=== PATIENT | female | born 2005 | race Asian ===

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

== ENCOUNTER 2023-03-16 12:52 | Outpatient (CLI) | payer OTHER, SELFPAY | END 2023-03-16 12:53 | disposition home or self-care (01) | LOC: AMB 04-14 13:37 | PROVIDERS: Visit Provider Family Medicine | DX: R45.851 Suicidal ideations (principal) | CPT/HCPCS: A0425; A0429 ==

== ENCOUNTER 2023-03-17 17:55 | Outpatient (CLI) | payer OTHER, SELFPAY | END 2023-03-17 17:56 | disposition home or self-care (01) | LOC: AMB 04-14 13:47 | PROVIDERS: Visit Provider Student in an Organized Health Care Education/Training Program | DX: R45.851 Suicidal ideations (principal) | CPT/HCPCS: A0425; A0429 ==

== ENCOUNTER 2024-12-14 17:29 | Outpatient (CLI) | payer OTHER, SELFPAY | END 2024-12-14 17:30 | disposition home or self-care (01) | LOC: NFLDUCREF 17:29 | DX: R10.9 Unspecified abdominal pain (principal) | CPT/HCPCS: 87086 ==

== ENCOUNTER 2025-03-01 09:25 | Outpatient (CLI) | payer OTHER, SELFPAY | END 2025-03-01 09:26 | disposition home or self-care (01) | PROVIDERS: PCP Family Medicine; Visit Provider Family Medicine | DX: R10.9 Unspecified abdominal pain (principal); R53.83 Other fatigue; Z13.6 Encounter for screening for cardiovascular disorders | CPT/HCPCS: 80053; 80061; 84443 ==

== ENCOUNTER 2025-03-20 02:07 | Outpatient (CLI) | payer OTHER, SELFPAY | END 2025-03-20 02:08 | disposition home or self-care (01) | LOC: AMB 03-22 08:33 | PROVIDERS: PCP Family Medicine; Visit Provider Family Medicine | DX: T45.0X2A Poisoning by antiallergic and antiemetic drugs, intentional self-harm, initial encounter (principal); F10.10 Alcohol abuse, uncomplicated | CPT/HCPCS: A0425; A0427 ==

== ENCOUNTER 2025-03-20 02:37 | Emergency (ER) | payer OTHER, SELFPAY ==
--- OUTSIDE RECORDS SUMMARY | 2025-03-20 02:40 | XMS_ITS | Clinical Summary ---
Author Organization [facility] Address [address] [place] [id number] Care Team Providers Care Manufacturing Advisor Name Role Phone None Primary Care Provider Unavailabl e Allergies Active Allergy Reactions Criticality Noted Date Comments Penicillins Hives 08/21/2022 Medications No known medications Active Problems Problem Noted Date Diagnosed Date Personality disorder, unspecified 11/25/2024 CHARLEEN (generalized anxiety disorder) 11/09/2024 MDD (major depressive disord er), recurrent severe, without psychosis 11/09/2024 Obsessive-compulsive disorder 11/09/2024 Suicidal ideation 03/18/2023 Severe episode of recurrent major depressive disorder, without psychotic features 08/21/2022 Generalized anxiety disorder 08/21/2022 Encounters Date Type Department Care Team Description 01/10/2025 10:00 AM CDT Telemedicine [facility] [address] [place] [address] Caden Rushing, PhD, LP Telehealth (Psychological Testing) 01/05/2025 Travel 12/21/2024 11:00 AM CDT Telemedicine [facility] [address] [place] [address] Caden Rushing, PhD, LP Telehealth 2024 Travel from Last 3 Months Immunizations Immunization Administration Dates Next Due Influenza, IIV4 06/16/2022 Family History Medical History Relation Name Comments No Known Problems Brother Paternal darin rother, I think he was killed. Heart Disease Father Lung cancer Father Stroke Father Hypertension Maternal Grandfather Hypertension Maternal Grandmother No Known Problems Mother Fabby No Known Problems Sister reports isaac ving 3-6 paternal sisters, no information is known about them Relation Name Status Comments Brother Father Maternal Grandfather Alive Maternal Grandmother Alive Mother Fabby Alive Paternal Grandfather Paternal Grandmother Sister Alive Social History Tobacco Use Types Packs/Day Years Used Date Smoking Tobacco: Never Smokeless Tobacco: Never Tobacco Cessation:Counseling Given: Yes Alcohol Use Standard Drinks/Week Comments Yes 0 (1 standard drink = 0.6 oz pur e alcohol) occasionally PHQ-2 Answer Date Recorded PHQ-2 TOTAL SCORE 1 2024 Social Connections Answer Date Recorded Do you often feel lonely or isolated from those around you? 0 10/10/2024 Alcohol Use Answer Date Recorded How often do you have a drink containing alcohol ? 0 03/18/2023 How many drinks containing a lcohol do you have on a typical day when you are drinking? 0 03/18/2023 How often do you have five or more drinks on one occasion? 0 03/18/2023 Financial Resource Strain Answer Date R ecorded Difficulty of Paying Living Expenses 3 10/10/2024 Difficulty of Paying Living Expenses Not on file 10/10/2024 Food Insecurity Answer Date Recorded Do you worry your food will run out before you are able to buy more? 1 10/10/2024 Transportation Needs Answer Date Record ed Does lack of transportation keep you from medica l appointments? 2 10/10/2024 Does lack of transportation keep you from work, meetings or getting things that you need? 1 10/10/2024 Housing Stability Answer Date Recorded What is your housing situation today? 1 10/10/2024 Utilities Answer Date Recorded Do you have trouble paying f or utilities (for example, heat, electricity, water, phone)? 1 10/10/2024 Education Answer Date Recorded What is the highest level of school you have completed or the highest degree you have received? Some college, no degree 03/18/2023 Comments Unknown Sex and Gender Information Value Date Recorded Sex Assigned at Not on file Legal Sex Female 1:51 PM CDT Gender Identity Not on file Sexual Orientation Not on file Occupation Industry Job Start Date Job End Date Not on file Not on file Not on file Not on file Obstetrics History Last Filed Vital Signs Vital Sign Reading Time Taken Comments Blood Pressure 118/80 10/24/2024 3:03 PM CDT Pulse 70 10/24/2024 3:03 PM CDT Temperature 36.9 C (98.4 F) 03/24/2023 8:00 AM CDT Respiratory Rate 12 03/24/2023 8:00 AM CDT Oxygen Saturation 98% 10/24/2024 3:03 PM CDT Inhaled Oxygen Concentration - - Weight 68.5 kg (151 lb) 10/24/2024 3:03 PM CDT Height 165.1 cm (5' 5) 03/21/2023 8:00 AM CDT Body Mass Index - - Plan of Treatment Health Maintenance Due Date Last Done Comments Tetanus booster 12/19/2014 HIV for age 15-65 12/19/2018 HPV series for age 9-45 (1 - 3-dose series) 12/19/2018 Chlamydia for age 16-24 2019 BMI (ht and wt on same day) for age 18+ 12/19/2021 Hepatitis C screening for age 18-79 12/19/2021 Hepatitis B series for 19+ (1 of 3 - 19+ 3-dose series) 12/19/2022 Pap test for age 21-65 12/19/2024 COVID-19 vaccine series ( - 2023- season) 2025 Influenza Vaccine (#1) 2025 06/16/2022 Depression screening for age 12+ 2025 2024, 10/24/2024, 10/24/2024, Additional history exists RSV vaccine for adults or (1 - 1-dose 75+ series) 12/19/2078 Meningococcal series for age 11-21 Aged Out No longer eligible based on patient's age to complete this topic Pneumococcal series for age 6-49 Aged Out No longer eligible based on patient's age to complete this topic Insurance [facility] ATTN: [place] [address] [employer] PPO Advance Directives * Full Code (Latest Code Status on File) Date Activated Date Inactivated Comments 03/18/2023 8:43 AM 03/24/2023 11:52 AM Question Answer Comments Code Status Discussion: Reviewed Preferences Care Teams Manufacturing Advisor Relationship Specialty Start Date End Date None . PCP - General 03/16/23
[2025-03-20 02:53] VITALS: BP 125/85; PULSE 95; RESP 16; TEMP 36.8; O2SAT 98; BMI 24.1
--- NOTE | 2025-03-20 03:02 | ED_ITS ---
HPI - Overdose General Chief Complaint: Overdose Stated Complaint: overdose Time Seen by Provider: 03/20/25 02:41 Source: patient and EMS Mode of arrival: EMS Limitations: no limitations History of Present Illness HPI Narrative: 19-year-old female identifying as male presents to the emergency department for evaluation of overdose. Overdose was 8 hours prior to arrival. Approximately 25 tablets of Benadryl and 10 tablets of ibuprofen mixed with a bottle of wine and some other random alcohol. Patient denies that she was planning a suicide attempt, reports that this was an impulsive thing and denies that this has ever happened before. It course know that this has happened before. Patient has tried checking energy drinks and has threatened suicide multiple times. We actually did receive a call from the [facility] psychologist while I was interviewing the patient and they report to us that she was followed by that particular psychologist 2 years ago, multiple visits threatened suicide frequently. Had a history of cutting, has had a couple of low yield attempts such as tugging energy drinks, similar episode as this. She was actually hospitalized after mental health evaluation in our ED 2 years ago in out early, I have reviewed that ED note but I do not have a discharge summary from the hospitalization. The psychologist states that the patient transferred to an outside therapist, patient denies seeing a therapist currently and denies use of any psychotropic medications. Tonight, patient states that she had the impulse to take the medications out of curiosity, wondered what might happen. She then reached out to her boyfriend stating that she ?felt like she was dying and took ?all of her pills?. She does not have access to any prescription medications currently. She denies any recreational drug use. Denies taking aspirin or Tylenol. She adamantly denies that it was with intent to kill herself but she has previously threatened to take Benadryl overdose to kill herself in the past according to the note from 2022. She reports that school is going fine thus far. There have been no major up people's in her personal, social or family life. When I ask about her family being in her life, she says that they really are not. But they do completely support her financially so clearly they are. It sounds as though she finds her parents to be cold and distant. Denies that she visits them on holidays or school breaks. She reports that she has friends in her life, is on track to graduate at the end of this school year. 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 She also mentions she has explore the thought of traveling to [facility] to visit extended family. He denies access to weapons, fire arms or other harmful items. She denies any current suicidal thoughts. It sounds as though she often threatens suicide and then quickly dismisses these thoughts. He certainly does seem to have a track record with knowing what to say to accomplish her goals for discharge. She does not use any recreational drugs, reports only social alcohol. No high-risk sexual behavior. Denies any chance of , currently on her menstrual cycle. Does not verbalize suicidal ideation to any friends recently. She did let us see the text that she sent to her boyfriend. She did not report any suicidal thoughts to EMS. They got basically the exact same story as triage and myself. When asked specifically if they would be willing to see a therapist or counselor from the school to help the brief after this episode and see what additional supports should be in place, they declined this. Citing that they would like to process things on their own and do not see any value and professional treatment. Denies any acute medical concerns. Has had episodes of retching after the ingestion, no hematemesis. Does not take any anticoagulants, has no history of seizure disorder. Poison Control was contacted. They report that the patient should be able to be medically cleared after 6 hours post ingestion, EKG basic metabolic panel, Tylenol and aspirin levels recommended. Patient denies any mental health concerns today. Reports benign past medical history, no major long-term health problems, allergy to penicillins, previous prescriptions for asthma medications reviewed. Nonsmoker. ROS notable for the overdose as above with some nausea, otherwise denies times 12 systems. Related Data Previous Rx's ?Medication ?Instructions ?Recorded albuterol sulfate 90 mcg/actuation 2 puff inhalation Q 4-6H PRN 01/22/25 aerosol inhaler shortness of breath or wheez ing #6.7 grams fluticasone furoate 100 1 inh inhalation QDAY #30 ea 03/01/25 mcg/actuation blister powder for inhalation (Arnuity Ellipta) Allergies Allergy/AdvReac Type Severity Reaction Status Date / Time Penicillins AdvReac Intermediate Hives Verified 03/20/25 03:02 PFSH PFSH Family History Father Lung cancer Stroke Heart disease Maternal Grandmother High blood pressure Maternal Grandfather High blood pressure Social History What is your current living situation?: I presently have a place to live Problems where you live: no known problems In the past 12 months, utilities in danger of being shut off: no In past 12 months, lack of transportation kept you from medical appts, meetings, work, or getting things needed for daily living: yes In the past 12 mos, have been you worried that your food would run out before you had money to buy more?: sometimes true In the past 12 mos, the food you bought just didn't last and you didn't have money to buy more?: never true Smoking Status: Never smoker Do you use any of these nicotine containing products: None Second hand tobacco smoke exposure: No How often do you have a drink containing alcohol: monthly or less How many standard drinks containing alcohol do you have on a typical day: 1 or 2 How often do you have six or more drinks on one occasion: Never AUDIT-C Alcohol total score: 1 Non-prescribed substance use: denies use How often does anyone, including family, friends and others, physically hurt you : never How often does anyone, including family, friends and others, insult or talk down to you: fairly often How often does anyone, including family, friends and others, threaten you with harm: never How often does anyone, including family, friends and others, scream or curse at you: sometimes service: No Health Related Social Needs: food insecurity (Z59.41), transportation insecurity (Z59.82) and Other personal risk factors, not elsewhere classified (Z91.89) Exam Const: Vital Signs, click to edit/add: Vital Signs - 24 hr 03/20/25 02:53 03/20/25 03:30 03/20/25 04:49 Temperature 98.3 F 98.5 F Pulse Rate [Pulse Oximeter] 95 81 76 Respiratory Rate 16 16 16 Blood Pressure [Ri ght Upper Arm] 125/85 124/79 128/88 Pulse Oximetry 98 98 98 Oxygen Delivery Me thod Room Air Room Air Room Air Documenting provider has reviewed patient's vital signs: yes Common normals: no apparent distress and alert General appearance: well kempt Other: Very guarded in her answers, thoughtful. She certainly does like to control the direction of a conversation. Polite and cooperative. Certainly seems to be searching for the answers that will reassure the healthcare team. I cannot necessarily say that she is being fully truthful. HENMT: Common normals: normocephalic, moist oral mucous membranes and oropharynx normal Head and scalp: normocephalic Eye: Common normals: conjunctivae normal General eye: normal appearance of both eyes Conjunctiva: conjunctiva(e) normal Neck & C-Spine: Common normals: full ROM, no lymphadenopathy, no meningeal signs and thyroid normal General: normal visual inspection Thyroid: thyroid normal Resp: Common normals: normal respiratory effort, no use of accessory muscles and clear to auscultation bilaterally Effort & inspection: able to speak in complete sentences Auscultation: clear to auscultation bilaterally Cardio: Common normals: regular rate, regular rhythm, S1 normal heart sound, S2 normal heart sound and no murmurs Rate: regular rate Rhythm: regular rhythm Heart sounds: S1 normal and S2 normal GI: Common normals: Normal to inspection, nondistended, normoactive bowel sounds present, soft to palpation, non-tender, no hepatosplenomegaly and no masses Palpation: soft and no hepatosplenomegaly Neuro: Common normals: moves all extremities Sensorium/orientation: alert Meningeal signs: no meningeal signs Speech: speech normal Motor exam: no movement abnormalities noted Psych: Common normals: thought process normal Appearance: well kempt Attitude: engaged Activity/motor behavior: appropriate eye contact Mood and affect: euthymic mood Thought process: normal thought process Thought content: normal thought content Insight: insight good Judgement: judgment good Skin: Common normals: no rashes or lesions noted Narrative: No obvious scars or signs of recent trauma. General skin exam: no rashes or lesions noted Course Course ED Course: 19-year-old female with Benadryl and ibuprofen overdose. Can be medically cleared if labs and EKG are normal. Bigger concern that this was a suicide attempt. Patient denies that, citing that this was impulsive. It sounds like it might have been brought on by drinking alcohol. Will check EKG, Tylenol and aspirin levels, basic metabolic panel and alcohol level. Patient certainly does not verbalize any suicidal thoughts or plan to me, triage or EMS but she is quite kg in her responses and I think but she has been through this process enough times to know what to say to direct us towards her intended outcomes. Will also get feedback from a mental health flat locker but the psychologist from the [facility] was overall reassuring that this is a typical pattern for the patient. Await outcomes of psychologists interview and labs. Reevaluation(s) Time of Reevaluation #1: 04:13 Reevaluation #1: Update: Spoke with Joseph intake mental health nurse, she had not found out that the patient does not have a roommate, she had not found out that the patient had declined to do therapy or a psychology visit outpatient to me. With this information, intake nurse does not think that the patient is safe to discharge without further talking to a higher level provider but admits that she is quite unsure. Mental health nurse will escalate to the psychiatrist for additional help in feedback. Patient informed of these results. She seemed a little disappointed. I also let her know that she is not currently on a 72 hour hold. But if she did try to leave prior to completion of her psychiatry assessment, she would be placed on a hold. Comfort items offered, patient declined at this time. Reevaluation #2: Update: Able to speak with Psychiatry after psychiatry consult and with patient. At this time, they do not believe the patient would benefit from inpat ient treatment. They were able to speak with the patient's significant other who is very convinced that this patient did not attempt suicide, has not been showing any signs of suicidal gestures or behavior when not drinking. They can contract to help keep them safe and watched them overnight. Labs all look reassuring. Patient does feel as though they are safe to discharge home. I still have encouraged them to follow-up with outpatient mental health treatment. Written instructions provided. Vital Signs Vital signs: Initial Vital Signs Temperature 98.3 F 03/20/25 02:53 Temperature Source Temporal Artery Scan 03/20/25 02:53 Pulse Rate 95 03/20/25 02:53 Respiratory Rate 16 03/20/25 02:53 Blood Pressure 125/85 03/20/25 02:53 Blood Pressure Mean 98 03/20/25 02:53 Blood Pressure Position Supine 03/20/25 02:53 Pulse Oximetry 98 03/20/25 02:53 Oxygen Delivery Method Room Air 03/20/25 02:53 Vital Signs Temperature 98.3 F 03/20/25 02:53 Pulse Rate 95 03/20/25 02:53 Respiratory Rate 16 03/20/25 02:53 Blood Pressure 125/85 03/20/25 02:53 Pulse Oximetry 98 03/20/25 02:53 Oxygen Delivery Method Room Air 03/20/25 02:53 Temperature 98.5 F 03/20/25 04:49 Pulse Rate 76 03/20/25 04:49 Respiratory Rate 16 03/20/25 04:49 Blood Pressure 128/88 03/20/25 04:49 Pulse Oximetry 98 03/20/25 04:49 Oxygen Delivery Method Room Air 03/20/25 04:49 MDM - Overdose Differential Diagnosis Differential diagnosis: Likely suicide attempt by multiple drug overdose, drug overdose and accidental drug ingestion Medical Records Attestation: I reviewed the patient's medical records. Lab Data Attestation: I reviewed the patient's lab results. Lab results narrative: Labs normal. No abnormalities. Alcohol and drug levels normal Labs: Lab Results 03/20/25 Range/Units 03:25 Sodium 136 (135-149) mmol/L Potassium 3.6 (3.6-5.1) mmol/L Chloride 105 (96-114) mmol/L Carbon Dioxide 25 (20-32) mmol/L Anion Gap 6 L (7-15) mEq/L BUN 9 (5-24) mg/dL Creatinine 0.6 (0.5-1.5) mg/dL Estimated Creat Clear 133.46 Estimated GFR 131 ml/min Glucose 99 (60-115) mg/dL Calcium 9.2 (8.4-10.6) mg/dL Salicylates < 1.0 L (1.0-10) mg/dL Acetaminophen < 10.0 (10.0-30.0) ug/mL Ethyl Alcohol < 0.01 (0.01-0.03) % ECG Data Attestation: I personally reviewed and interpreted this ECG as follows: Prior ECG tracings: not available for review Interpretation: Sinus rhythm with a rate of 77. No significant ST or T-wave abnormalities. Normal intervals and axis. Good R-wave progression. Normal EKG. Discharge Plan Discharge Clinical Impression: Drug overdose Patient Disposition: Home w/ Parent or Adult Condition: Improved Instructions: Adult Overdose (ED) Additional Instructions: As we discussed, even though this episode did seem somewhat impulsive, this certainly has some underlying mental health concerns that her worrisome for suicide. I do think that alcohol certainly escalated your symptoms and I do not recommend that you continue should drink alcohol. You have declined to have this reassessed by mental health professional I would strongly encourage you to reconsider that. Digesting your own feelings is important but deeper exploration may help reveal some or underlying seems that may benefit you in the long run to better understand. I strongly encourage you to reconsider this and schedule with the psychologist from your [place]. You are medically cleared to return to school and work. If you have worsening of your mental health feelings, please call 911, reach out to a trustworthy friend or present to the emergency department. Activity Level: No Restrictions Discharge Diet: Regular Prescriptions: No Action albuterol sulfate 90 mcg/actuation HFA aerosol inhaler 2 puff inhalation Q4-6H PRN (Reason: shortness of breath or wheezing) Qty: 6.7 0RF fluticasone furoate [Arnuity Ellipta] 100 mcg/actuation blister with device 1 inh inhalation QDAY Qty: 30 12RF Follow Up/Referrals: Anthony Olea MD [Primary Care Provider, Family Practice] Stand Alone Forms: [employer] Info Instructions
[2025-03-20 03:30] VITALS: BP 124/79; PULSE 81; RESP 16; O2SAT 98
[2025-03-20 03:54] LABS: Chloride* 105 mmol/L (96-114); Potassium* 3.6 mmol/L (3.6-5.1); Sodium* 136 mmol/L (135-149)
[2025-03-20 03:57] LABS: Anion Gap 6 mEq/L (7-15); Blood Urea Nitrogen* 9 mg/dL (5-24); Calcium* 9.2 mg/dL (8.4-10.6); Carbon Dioxide* 25 mmol/L (20-32); Creatinine* 0.6 mg/dL (0.5-1.5); Est. Creatinine Clearance* 133.46; Estimated Glomerular Filt Rate 131 ml/min; Glucose* 99 mg/dL (60-115)
[2025-03-20 03:58] LABS: Acetaminophen* < 10.0 ug/mL (10.0-30.0); Ethanol* < 0.01 % (0.01-0.03); Salicylate* < 1.0 mg/dL (1.0-10)
[2025-03-20 04:49] VITALS: BP 128/88; PULSE 76; RESP 16; TEMP 36.9; O2SAT 98
== END 2025-03-20 05:13 | disposition home or self-care (01) ==
PROVIDERS: Emergency Provider Family Medicine; PCP Family Medicine
DX: T45.0X2A Poisoning by antiallergic and antiemetic drugs, intentional self-harm, initial encounter (principal); T39.312A Poisoning by propionic acid derivatives, intentional self-harm, initial encounter; F10.99 Alcohol use, unspecified with unspecified alcohol-induced disorder; Z13.6 Encounter for screening for cardiovascular disorders
CPT/HCPCS: 36415; 80048; 80143; 80179; 82077; 93005; 99284; 99285; Q3014

== ENCOUNTER 2025-05-16 21:01 | Outpatient (CLI) | payer OTHER, SELFPAY | END 2025-05-16 21:02 | disposition home or self-care (01) | PROVIDERS: PCP Family Medicine; Visit Provider Emergency Medicine | DX: R45.851 Suicidal ideations (principal) | CPT/HCPCS: A0425; A0427 ==

== ENCOUNTER 2025-05-16 21:13 | Emergency (ER) | payer OTHER, SELFPAY ==
--- OUTSIDE RECORDS SUMMARY | 2025-05-16 21:14 | XMS_ITS | Clinical Summary ---
Author Organization [employer] [facility] Address [address] [place] [id number] Care Team Providers Care Decoration Checker Name Role Phone None Primary Care Provider [...] Encounters Date Type Department Care Team Description 05/15/2025 2:00 PM PLANT PROTECTION GUARD Office Visit [facility] [address] [place] [address] Stevie De Los Santos, [facility] Mental Health Consultants Visit 05/15/2025 Nurse Triage [facility] [address] [place] [address] Pcp, No Suicidal Ideation (Patient transferred to triage after telling [facility] she was suicidal and crying.) 05/15/2025 Travel from Last 3 Months Immunizations Immunization Administration Dates Next Due Influenza, IIV4 06/16/2022 Family History Medical History Relation Name Comments No Known Problems Brother Paternal darin raygoza, I think he was killed. Heart Disease [...] PHQ-2 Answer Date Recorded PHQ-2 TOTAL SCORE 5 05/15/2025 Social Connections Answer Date Recorded Do you [...] Mass Index - - Plan of Treatment Upcoming Encounters Date Type Department Care Team (Late st Contact Info) Description 05/19/2025 1:00 PM PLANT PROTECTION GUARD Telemedicine [facility] [address] [place] [address] Stevie De Los Santos, [facility] [address] [place] [address] Health Maintenance Due Date Last Done Comments [...] age 21-65 12/19/2024 COVID-19 vaccine series ( season) 2025 Influenza Vaccine (#1) 2025 06/16/2022 Depression screening for age 12+ 05/15/2026 05/15/2025, 10/24/2024, 10/24/2024, Additional history exists RSV vaccine for adults or (1 - 1-dose 75+ series) 12/19/2078 Meningococcal series for age 11-21 Aged Out No longer eligible based on patient's age to complete this topic Pneumococcal series for age 6-49 Aged Out No longer eligible based on patient's age to complete this topic Insurance [facility] ATTN: [place] [address] [employer] PPO Advance Directives * Full Code (Latest Code Status on File) Date Activated Date Inactivated Comments 03/18/2023 8:43 AM 03/24/2023 11:52 AM Question Answer Comments Code Status Discussion: Reviewed Preferences Care Teams Decoration Checker Relationship Specialty Start Date End Date None . PCP - General 03/16/23
--- NOTE | 2025-05-16 21:27 | ED.PSYCH ---
HPI - Psych General Time Seen by Provider: 21:27 Date Seen: 05/16/25 Chief Complaint: Psychiatric Problem/Disorder Stated Complaint: mental health Time Seen by Provider: 05/16/25 21:27 Source: patient and EMS Mode of arrival: EMS History of Present Illness HPI Narrative: Jorge Patel is a 19 yo female with a past medical history of depression, suicide ideation, suicide attempts who presents to the ED by EMS for overdose and suicide attempt. Patient reports that he lives alone, reports that he is currently stressed with homework, and called to see if he could go back home during the break. Patient talked to mother's boyfriend who said no. Patient also reports that his boyfriend broke up with her about 1 week ago and that was his only support. Patient states that he has no other support, does not want to be alone. Patient states that tonight he took [id number] ibuprofen. When asked how much, what time, and intention patient replied I do not know. Per EMS reported overdose of [place] 2100 [place] [address] mg. Patient did have nausea, vomiting in patient in EMS reported that he vomited most of the medication up. Patient denies any other medications, states he did not take any other prescribed per [id number] medications. Patient does report recent self-injurious behavior with cutting with a scissors to his left forearm. Patient states he does not know when he self harmed. Patient currently denies any suicide ideation. Patient states does not feel safe alone. Does not want to be alone. Patient with no other medical complaints. Per chart review patient was in the emergency department back in 2022 for depression and most recently in the emergency department for drug overdose on 03/20/2025 (with overdose of ibuprofen and Benadryl). At this time patient did discharge with a. Outpatient follow-up. Patient states she is post be getting a call today to set up intensive outpatient therapy. Related Data Previous Rx's ?Medication ?Instructions ?Recorded albuterol sulfate 90 mcg/actuation 2 puff inhalation Q4-6H PRN 01/22/25 aerosol inhaler shortness of breath or wheezing #6.7 grams fluticasone furoate 100 1 inh inhalation QDAY #30 ea 03/01/25 mcg/actuation blister powder for inhalation (Arnuity Ellipta) dextroamphetamine-amphetamine ER 20 mg PO QAM #30 caps 04/03/25 20 mg 24hr capsule,extend release (Adderall XR) Allergies Allergy/AdvReac Type Severity Reaction Status Date / Time Penicillins AdvReac Intermediate Hives Verified 04/03/25 13:51 Review of Systems Narrative: Past medical history, past surgical history, medications, allergies, family history, and social history were reviewed with the patient. No additional pertinent items. A medically appropriate review of systems was performed with pertinent positives and negatives noted in HPI, all other systems negative. PFSH PFSH Family History Father Lung cancer Stroke Heart disease Maternal Grandmother High blood pressure Maternal Grandfather High blood pressure Social History What is your current living situation?: I presently have a place to live Problems where you live: no known problems In the past 12 months, utilities in danger of being shut off: no In past 12 months, lack of transportation kept you from medical appts, meetings, work, or getting things needed for daily living: yes In the past 12 mos, have been you worried that your food would run out before you had money to buy more?: sometimes true In the past 12 mos, the food you bought just didn't last and you didn't have money to buy more?: never true Smoking Status: Never smoker Do you use any of these nicotine containing products: None Second hand tobacco smoke exposure: No How often do you have a drink containing alcohol: monthly or less How many standard drinks containing alcohol do you have on a typical day: 1 or 2 How often do you have six or more drinks on one occasion: Never AUDIT-C Alcohol total score: 1 Non-prescribed substance use: denies use How often does anyone, including family, friends and others, physically hurt you: never How often does anyone, including family, friends and others, insult or talk down to you: fairly often How often does anyone, including family, friends and others, threaten you with harm: never How often does anyone, including family, friends and others, scream or curse at you: sometimes service: No Health Related Social Needs: food insecurity (Z59.41), transportation insecurity (Z59.82) and Other personal risk factors, not elsewhere classified (Z91.89) Exam Narrative: Exam Narrative: General: Afebrile, no acute distress HEENT: Normocephalic, atraumatic, conjunctiva normal. MMM Neck: non-tender, supple Cardio: regular rate. regular rhythm Resp: Normal work of breathing, no respiratory distress, lungs clear bilaterally, no wheezing, rhonchi, rales Chest/Back: no visual signs of trauma, no midline tenderness, no CVA tenderness Abdomen: soft, non distension, no tenderness, no peritoneal signs Neuro: alert and fully oriented. CN II-XII grossly intact. Grossly normal strength and sensation in all extremities. MSK: no deformities. Normal range of motion Integumentary/Skin: superficial /lacerations to left upper extremity (forearm) with no active bleeding, healing superficial lacerations to right upper extremities Psych: normal affect, normal behavior Const: Vital Signs, click to edit/add: Vital Signs - 24 hr 05/16/25 21:28 05/16/25 23:47 05/17/25 01:01 Temperature 98.9 F Pulse Rate 64 Pulse Rate [Left P ulse Oximeter] 84 73 Respiratory Rate 16 19 23 Blood Pressure 104/76 Blood Pressure [Le ft Upper Arm] 121/88 113/85 Pulse Oximetry 97 97 [facility] 05/17/25 01:15 05/17/25 01:30 05/17/25 01:45 Temperature Pulse Rate 63 76 75 Pulse Rate [Left P ulse Oximeter] Respiratory Rate 20 23 16 Blood Pressure Blood Pressure [Le ft Upper Arm] Pulse Oximetry 96 96 [facility] 05/[facility]25 02:00 05/17/25 02:01 05/17/25 02:15 Temperature Pulse Rate 69 67 74 Pulse Rate [Left P ulse Oximeter] Respiratory Rate 23 15 19 Blood Pressure 112/75 Blood Pressure [Le ft Upper Arm] Pulse Oximetry 96 96 [facility] 05[facility]25 02:30 05/17/25 02:45 05/17/25 03:00 Temperature Pulse Rate 68 64 64 Pulse Rate [Left P ulse Oximeter] Respiratory Rate 21 22 20 Blood Pressure Blood Pressure [Le ft Upper Arm] Pulse Oximetry 97 97 96 [facility] 05/[facility]25 03:01 05/17/25 03:02 05/17/25 03:15 Temperature Pulse Rate 62 67 70 Pulse Rate [Left P ulse Oximeter] Respiratory Rate 19 23 20 Blood Pressure 107/72 Blood Pressure [Le ft Upper Arm] Pulse Oximetry 97 97 97 Oxygen Delivery Me thod 05/17/25 03:30 05/17/25 03:45 05/17/25 04:00 Temperature Pulse Rate 69 69 61 Pulse Rate [Left P ulse Oximeter] Respiratory Rate 22 17 19 Blood Pressure Blood Pressure [Le ft Upper Arm] Pulse Oximetry 97 97 97 Oxygen Delivery Me thod 05/17/25 04:01 05/17/25 04:15 05/17/25 04:30 Temperature Pulse Rate 65 73 70 Pulse Rate [Left P ulse Oximeter] Respiratory Rate 19 22 21 Blood Pressure 86/60 L Blood Pressure [Le ft Upper Arm] Pulse Oximetry 97 97 97 Oxygen Delivery Me thod 05/17/25 04:45 05/17/25 05:00 05/17/25 05:01 Temperature Pulse Rate 65 65 71 Pulse Rate [Left P ulse Oximeter] Respiratory Rate 20 19 19 Blood Pressure 105/73 Blood Pressure [Le ft Upper Arm] Pulse Oximetry 96 97 97 Oxygen Delivery Me thod 05/17/25 05:15 05/17/25 05:30 05/17/25 05:45 Temperature Pulse Rate 65 64 65 Pulse Rate [Left P ulse Oximeter] Respiratory Rate 20 18 24 Blood Pressure Blood Pressure [Le ft Upper Arm] Pulse Oximetry 97 97 97 Oxygen Delivery Me thod 05/17/25 06:00 05/17/25 06:01 05/17/25 06:15 Temperature Pulse Rate 65 64 65 Pulse Rate [Left P ulse Oximeter] Respiratory Rate 19 21 20 Blood Pressure 101/71 Blood Pressure [Le ft Upper Arm] Pulse Oximetry 97 97 97 Oxygen Delivery Me thod 05/17/25 06:30 Temperature Pulse Rate 67 Pulse Rate [Left P ulse Oximeter] Respiratory Rate 18 Blood Pressure Blood Pressure [Le ft Upper Arm] Pulse Oximetry 97 Oxygen Delivery Me thod Course Vital Signs Vital signs: Initial Vital Signs Temperature 98.9 F 05/16/25 21:28 Temperature Source Temporal Artery Scan 05/16/25 21:28 Pulse Rate 84 05/16/25 21:28 Pulse Rhythm Regular 05/16/25 21:28 Respiratory Rate 16 05/16/25 21:28 Blood Pressure 121/88 05/16/25 21:28 Blood Pressure Mean 99 05/16/25 21:28 Blood Pressure Position Sitting 05/16/25 21:28 Pulse Oximetry 97 05/16/25 21:28 Oxygen Delivery Method Room Air 05/16/25 21:28 Vital Signs Temperature 98.9 F 05/16/25 21:28 Pulse Rate 84 05/16/25 21:28 Respiratory Rate 16 05/16/25 21:28 Blood Pressure 121/88 05/16/25 21:28 Pulse Oximetry 97 05/16/25 21:28 Oxygen Delivery Method Room Air 05/16/25 21:28 Temperature 98.9 F 05/16/25 21:28 Pulse Rate 67 05/17/25 06:30 Respiratory Rate 18 05/17/25 06:30 Blood Pressure 101/71 05/17/25 06:01 Pulse Oximetry 97 05/17/25 06:30 Oxygen Delivery Method Room Air 05/16/25 23:47 Medications Administered Medications: Discontinued Medications Generic Name Dose Route Start Last Admin Trade Name Freq PRN Reason Stop Dose Admin Charcoal 50 gm 05/16/25 21:51 05/16/25 22:00 Activated Charcoal Suspension 50 Gm/240 Ml PO 05/16/25 21:52 50 gm ONCE ONE Administration MDM - Psych MDM Narrative Medical decision making narrative: Jorge Patel is a 19 yo female with a past medical history of depression, suicide ideation, suicide attempts who presents to the ED by EMS for overdose and suicide attempt. Upon arrival patient is nontoxic appearing, afebrile, no distress. Patient hemodynamically stable vital signs within normal limits. Patient here with overdose, unclear of intent. Patient with recent overdose back in March however currently denies any suicide ideation. ED nurse discussed with poison control upon arrival who recommends activated charcoal, comprehensive labs. I reviewed EKG which demonstrates normal sinus rhythm, normal axis, ventricular rate of 71 beats per minute, QTC 421, no acute ischemic change. Comprehensive labs unremarkable with white blood cell count 8.1, hemoglobin 12.8, no acute metabolic electrolyte abnormality, creatinine 0.6, negative salicylate level, negative acetaminophen level, urine drug screen positive for amphetamines, alcohol negative. Patient tolerated activated charcoal with no further episodes of vomiting. Repeat 4 hour CMP unremarkable with no acute metabolic or electrolyte abnormality, creatinine 0.7. Poison Control cleared patient at 0433. Patient is medically cleared. At this time patient continues to be sleeping, resting comfortably, so will hold off on DARY evaluation until the morning. I did receive collateral information from clinical psychologist and director of [facility] (student health and counseling) Ifrah Allen ([phone]) at [facility] who has meet with Jorge Patel in clinic previously. Tonight from security report - security office got a call from Hair (Poly mother's boyfriend). Poly said he was going to take pills to kill himself. Couldn't take it anymore and couldn't finish out the academic year. Security officers walked into house and asked Poly said he wanted to kill himself when asked. Started sobbing, vomit on floor along with ~ 50 pills that was regurgitated pills also almost empty bottle of ibuprofen, another bottle of ibuprofen and Tylenol. While on phone with 911 Poly hid scissors under arm. Police removed upon arrival and EMS transported. 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 Cant do school and life at the same time. Difficulty communicating at the same time. Patient has a longstanding history of SI and hospitalization but has been stable recently until today. Patient remains hemodynamically stable, resting comfortably. Patient medically cleared. Patient signed out to morning provider pending [facility] mental health assessment and final disposition. Medical Records Attestation: I reviewed the patient's medical records. Lab Data Attestation: I reviewed the patient's lab results. Labs: Lab Results 05/16/25 05/16/25 05/16/25 Range/Units 21:42 22:34 23:57 WBC 8.11 (4.50-11.00) K/uL RBC 4.97 (4.00-5.20) m/uL Hgb 12.8 (12.0-16.0) gm/dL Hct 40.8 (33.0-51.0) % MCV 82 (80-100) fL MCH 26 (26-34) pg MCHC 31 L (32-36) gm/dL RDW Coeff of Allen 13.8 (11.5-15.5) % Plt Count 65 L (140-440) K/uL Neut % (Auto) 65.7 (42.0-72.0) % Lymph % (Auto) 27.3 (20-44) % [place] % (Auto) 6.0 (0.0-11.0) % Eos % (Auto) 0.2 (0.0-7.0) % Baso % (Auto) 0.2 (0.0-3.0) % Neut # (Auto) 5.32 (1.7-7.0) K/uL Lymph # (Auto) 2.21 (0.90-2.90) K/uL [place] # (Auto) 0.50 (0.00-0.90) K/UL Eos # (Auto) 0.02 (0.00-0.50) K/uL Baso # (Auto) 0.02 (0.00-0.30) K/uL Abs Immat Gran (auto) 0.05 (0.00-0.30) K/uL Imm/Tot Granulo (auto) 0.6 % Sodium 139 (135-149) mmol/L Potassium 3.9 (3.6-5.1) mmol/L Chloride 101 (96-114) mmol/L Carbon Dioxide 22 (20-32) mmol/L Anion Gap 16 H (7-15) mEq/L BUN 9 (5-24) mg/dL Creatinine 0.6 (0.5-1.5) mg/dL Estimated Creat Clear 128.08 Estimated GFR 131 ml/min Glucose 96 (60-115) mg/dL Calcium 9.3 (8.4-10.6) mg/dL Total Bilirubin 0.5 (0.1-1.5) mg/dL AST 24 (12-35) U/L ALT 16 (4-35) U/L Alkaline Phosphatase 81 (40-150) U/L Total Protein 7.6 (6.0-8.3) g/dL Albumin 4.5 (3.3-5.0) g/dL TSH 0.808 (0.270-4.200) uIU/mL Urine HCG, Qual Negative (Negative) Salicylates < 1.0 L (1.0-10) mg/dL Urine Opiates Screen Negative (Negative) Ur Oxycodone Screen Negative (Negative) Urine Methadone Screen Negative (Negative) Acetaminophen < 10.0 (10.0-30.0) ug/mL Ur Barbiturates Screen Negative (Negative) U Tricyclic Antidepress Negative (Negative) Ur Phencyclidine Scrn Negative (Negative) Ur Amphetamines Screen POSITIVE A (Negative) U Methamphetamines Scrn Negative (Negative) U Benzodiazepines Scrn Negative (Negative) Urine Cocaine Screen Negative (Negative) U Marijuana (THC) Screen Negative (Negative) Ur Drug Screen Comment See Note Ethyl Alcohol < 0.01 (0.01-0.03) % SARS-CoV-2 (PCR) Negative SARS-CoV-2 (Negative) Influenza Type A (PCR) Negative PCR FLU A (Negative) Influenza Type B (PCR) Negative PCR FLU B (Negative) 05/17/25 Range/Units 02:36 WBC (4.50-11.00) K/uL RBC (4.00-5.20) m/uL Hgb (12.0-16.0) gm/dL Hct (33.0-51.0) % MCV (80-100) fL MCH (26-34) pg MCHC (32-36) gm/dL RDW Coeff of Allen (11.5-15.5) % Plt Count (140-440) K/uL Neut % (Auto) (42.0-72.0) % Lymph % (Auto) (20-44) % [place] % (Auto) (0.0-11.0) % Eos % (Auto) (0.0-7.0) % Baso % (Auto) (0.0-3.0) % Neut # (Auto) (1.7-7.0) K/uL Lymph # (Auto) (0.90-2.90) K/uL [place] # (Auto) (0.00-0.90) K/UL Eos # (Auto) (0.00-0.50) K/uL Baso # (Auto) (0.00-0.30) K/uL Abs Immat Gran (auto) (0.00-0.30) K/uL Imm/Tot Granulo (auto) % Sodium 144 (135-149) mmol/L Potassium 3.7 (3.6-5.1) mmol/L Chloride 105 (96-114) mmol/L Carbon Dioxide 24 (20-32) mmol/L Anion Gap 15 (7-15) mEq/L BUN 8 (5-24) mg/dL Creatinine 0.7 (0.5-1.5) mg/dL Estimated Creat Clear 109.78 Estimated GFR 126 ml/min Glucose 97 (60-115) mg/dL Calcium 9.3 (8.4-10.6) mg/dL Total Bilirubin 0.3 (0.1-1.5) mg/dL AST 27 (12-35) U/L ALT 17 (4-35) U/L Alkaline Phosphatase 59 (40-150) U/L Total Protein 7.3 (6.0-8.3) g/dL Albumin 4.6 (3.3-5.0) g/dL TSH (0.270-4.200) uIU/mL Urine HCG, Qual (Negative) Salicylates (1.0-10) mg/dL Urine Opiates Screen (Negative) Ur Oxycodone Screen (Negative) Urine Methadone Screen (Negative) Acetaminophen (10.0-30.0) ug/mL Ur Barbiturates Screen (Negative) U Tricyclic Antidepress (Negative) Ur Phencyclidine Scrn (Negative) Ur Amphetamines Screen (Negative) U Methamphetamines Scrn (Negative) U Benzodiazepines Scrn (Negative) Urine Cocaine Screen (Negative) U Marijuana (THC) Screen (Negative) Ur Drug Screen Comment Ethyl Alcohol (0.01-0.03) % SARS-CoV-2 (PCR) (Negative) Influenza Type A (PCR) (Negative) Influenza Type B (PCR) (Negative) Discharge Plan Discharge Clinical Impression: Overdose, Suicide ideation, Depression Prescriptions: No Action albuterol sulfate 90 mcg/actuation HFA aerosol inhaler 2 puff inhalation Q4-6H PRN (Reason: shortness of breath or wheezing) Qty: 6.7 0RF fluticasone furoate [Arnuity Ellipta] 100 mcg/actuation blister with device 1 inh inhalation QDAY Qty: 30 12RF dextroamphetamine-amphetamine [Adderall XR] 20 mg capsule,extended release 24hr 20 mg PO QAM Qty: 30 0RF Follow Up/Referrals: Anthony Olea MD [Primary Care Provider, Family Practice]
[2025-05-16 21:28] VITALS: BP 121/88; PULSE 84; RESP 16; TEMP 37.2; O2SAT 97; BMI 22.9
[2025-05-16 22:50] LABS: Ur HCG Qualitative* Negative (Negative)
[2025-05-16 22:59] LABS: Cannabinoid Screen Urine Negative (Negative); Methamphetamines Screen Urine Negative (Negative); Tricyclic Antidepressant Urine Negative (Negative)
[2025-05-16 23:07] LABS: Hematocrit* 40.8 % (33.0-51.0); Hemoglobin* 12.8 gm/dL (12.0-16.0); Immature Granulocytes Abs Auto 0.05 K/uL (0.00-0.30); Immature Granulocytes Pct Auto 0.6 %; Lymphocytes Absolute Auto 2.21 K/uL (0.90-2.90); Mean Corpuscular HGB Conc 31 gm/dL (32-36); Mean Corpuscular Hemoglobin 26 pg (26-34); Mean Corpuscular Volume 82 fL (80-100); RDW Coefficient of Variation % 13.8 % (11.5-15.5); Red Blood Count* 4.97 m/uL (4.00-5.20); White Blood Count* 8.11 K/uL (4.50-11.00)
[2025-05-16 23:32] LABS: Slide Review Reflex No
[2025-05-16 23:33] LABS: Albumin* 4.5 g/dL (3.3-5.0); Chloride* 101 mmol/L (96-114); Potassium* 3.9 mmol/L (3.6-5.1); Sodium* 139 mmol/L (135-149)
[2025-05-16 23:36] LABS: Alanine Aminotransferase* 16 U/L (4-35); Alkaline Phosphatase* 81 U/L (40-150); Anion Gap 16 mEq/L (7-15); Aspartate Amino Transferase* 24 U/L (12-35); Bilirubin Total* 0.5 mg/dL (0.1-1.5); Blood Urea Nitrogen* 9 mg/dL (5-24); Calcium* 9.3 mg/dL (8.4-10.6); Carbon Dioxide* 22 mmol/L (20-32); Creatinine* 0.6 mg/dL (0.5-1.5); Est. Creatinine Clearance* 128.08; Estimated Glomerular Filt Rate 131 ml/min; Glucose* 96 mg/dL (60-115); Total Protein* 7.6 g/dL (6.0-8.3)
[2025-05-16 23:43] LABS: Acetaminophen* < 10.0 ug/mL (10.0-30.0); Ethanol* < 0.01 % (0.01-0.03); Salicylate* < 1.0 mg/dL (1.0-10)
[2025-05-16 23:47] VITALS: BP 113/85; PULSE 73; RESP 19; O2SAT 97
[2025-05-17] VITALS (30 sets, daily range): BP systolic 86–112; BP diastolic 60–76; PULSE 61–89; RESP 15–24; TEMP 36.4; O2SAT 96–99
[2025-05-17 00:07] LABS: TSH With Reflex to FT4* 0.808 uIU/mL (0.270-4.200)
[2025-05-17 00:42] LABS: PCR FLU A Negative PCR FLU A (Negative); PCR FLU B Negative PCR FLU B (Negative); SARS PCR* Negative SARS-CoV-2 (Negative)
[2025-05-17 02:49] LABS: Albumin* 4.6 g/dL (3.3-5.0); Chloride* 105 mmol/L (96-114); Potassium* 3.7 mmol/L (3.6-5.1); Sodium* 144 mmol/L (135-149)
[2025-05-17 02:52] LABS: Alanine Aminotransferase* 17 U/L (4-35); Alkaline Phosphatase* 59 U/L (40-150); Anion Gap 15 mEq/L (7-15); Aspartate Amino Transferase* 27 U/L (12-35); Bilirubin Total* 0.3 mg/dL (0.1-1.5); Blood Urea Nitrogen* 8 mg/dL (5-24); Calcium* 9.3 mg/dL (8.4-10.6); Carbon Dioxide* 24 mmol/L (20-32); Creatinine* 0.7 mg/dL (0.5-1.5); Est. Creatinine Clearance* 109.78; Estimated Glomerular Filt Rate 126 ml/min; Glucose* 97 mg/dL (60-115); Total Protein* 7.3 g/dL (6.0-8.3)
== END 2025-05-17 18:57 | disposition other institution (70) ==
PROVIDERS: Emergency Provider Emergency Medicine; PCP Family Medicine
DX: T39.312A Poisoning by propionic acid derivatives, intentional self-harm, initial encounter (principal); R45.851 Suicidal ideations; F32.A Depression, unspecified; Y92.009 Unspecified place in unspecified non-institutional (private) residence as the place of occurrence of the external cause; Z63.0 Problems in relationship with spouse or partner
CPT/HCPCS: 36415; 80053; 80143; 80179; 80306; 81025; 82077; 84443; 85025; 87636; 93005; 96372; 99285; A9270

== ENCOUNTER 2025-05-17 18:48 | Outpatient (CLI) | payer OTHER, SELFPAY | END 2025-05-17 18:49 | disposition home or self-care (01) | PROVIDERS: PCP Family Medicine; Visit Provider Family Medicine | DX: R45.851 Suicidal ideations (principal) | CPT/HCPCS: A0425; A0429 ==